=== PATIENT | female | born 1980 | race Two or more races ===

== ENCOUNTER 2024-06-26 11:45 | Day surgery (SDC) | payer MEDICAID, SELFPAY ==
--- NOTE | 2024-06-25 06:39 | EKG_ITS ---
[facility] Test Date: 2024-06-25 Pat Name: NICK ALEX Department: Room: - Gender: Female Clin Tech: [facility] : 1980 Requested By: Kiran Stark Order Number: [id number] Reading MD: Kiran Stark Measurements Intervals [place] Rate: 64 P: 52 UT: 120 QRS: 50 QRSD: 93 T: 55 QT: 388 QTc: 402 Interpretive Statements SINUS RHYTHM No previous ECG available for comparison /store/S0/[id number]/ecg/[id number]
[2024-06-25 08:33] VITALS: BMI 29.9
[2024-06-25 09:54] LABS: Alanine Aminotransferase 10 U/L (10-49); Albumin, Serum 4.3 gm/dL (3.5-5.0); Albumin/Globulin Ratio 1.4 (1.2-2.2); Alkaline Phosphatase 57 U/L (46-116); Anion Gap 6 (7-16); Aspartate Amino Transferase 13 U/L (0-34); BUN/Creatinine Ratio 18 Ratio (12-20); Bilirubin,Total 0.6 mg/dL (0.3-1.2); Blood Urea Nitrogen 11 mg/dL (9-23); Calcium 9.6 mg/dL (8.3-10.6); Calcium (Corrected) 9.6 mg/dL (8.5-10.1); Carbon Dioxide 29.9 mMol/L (20.0-31.0); Chloride 106 mMol/L (98-107); Creatinine (Component) 0.6 mg/dL (0.6-1.3); Estimated Creatinine Clearance 117.3 mL/min (>60); Globulin 3.1 gm/dL (2.3-3.5); Glucose 100 mg/dL (74-106); Osmolality,Calculated 282 (275-295); Potassium 4.5 mMol/L (3.4-5.1); Sodium 142 mMol/L (136-145); Total Protein 7.4 gm/dL (5.7-8.2); eGFR > 60 See Note
[2024-06-26] VITALS (7 sets, daily range): BP systolic 125–151; BP diastolic 69–78; PULSE 67–119; RESP 14–20; TEMP 36.2–36.6; O2SAT 95–100; BMI 29.6
--- NOTE | 2024-06-26 15:28 | ESOP_ITS ---
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 Almost the entire tympanic membrane was covered with a thick adhesion. The malleus was severely barely retracted. The incus had been rotated and placed on top of the stapes but this had migrated superficially. There was cartilage underneath the tympanic membrane from prior reconstruction. The chorda tympani nerve was identified and preserved. The stapes was identified and preserved as well. Procedure Description Indications: This is a 43-year-old female with a moderate to severe mixed hearing loss. She had ear surgery several years ago with no significant improvement. She wished to have a revision performed and repair of the perfor ation. Risk of bleeding infection hearing loss dizziness decreased sense of taste and potential need for further surgery were discussed as well. Anticipated outcomes was discussed also. Patient was marked in the preoperative setting then transferred to the operative suite where she was anesthetized and intubated and sterilely prepped and draped. A timeout was performed. The external canal was injected with 1% lidocaine with 1 100,000 dilution epinephrine the canal was then irrigated with warm saline solution and suction. At this point it was noted there was very thick adhesion overlying the tympanic membrane. This was transected with the sickle knife and the round knife. A portion of it was removed and pressed and dried for later reconstructive purposes. The adhesion was removed from overlying the anterior and superior portions of the tympanic membrane as well. This was done with the assistance of the CO2 laser. The posterior tympanomeatal flap was created and elevated. The chorda tympani nerve was eventually identified. There were adhesions there and these were partially removed with the CO2 laser. The incus was identified as mentioned above. So was the cartilage. Neither were in contact with the stapes superstructure. An 11 blade was used to make a tragal incision and tragal cartilage was harvested. The middle ear was partially filled with dry [place]. The cartilage was then brought into the field and manipulated into the position under the inferior half of the tympanic membrane. The incus and cartilage from prior grafting of been freed from the overlying tissue and repositioned in a better position. The posterior tympanomeatal flap was then folded back over in his normal position. There was a slight gap in the cartilage anteriorly and inferiorly and this was covered with the scar tissue that he been harvested previously. Surg[place]am dipped in saline was then placed on top of the graft and the tympanomeatal flap. Double antibiotic ointment was then placed on top of that. The tragal incision was closed with Dermabond. A sterile cottonball was placed in the external meatus after being coated with antibiotic ointment. Patient was awakened and taken the recovery room in stable condition Anesthesia GETA Pathology / specimen None Estimated Blood Loss 1 Surgeon Kiran Gay DO Surgical Staff Operation Date: 06/26/24 14:00 Case Staff Anesthesiologist: Pineda Muhammad
--- NOTE | 2024-06-26 15:35 | SUR.PHASEI ---
1535: Pt. wakes to name then drifts back to sleep, vitals stable, breathing unlabored, no signs of distress, dressing to left ear has scant amount of blood, report received from Macho LIRA and MD Muhammad.
--- NOTE | 2024-06-26 16:30 | SUR.PHASEII ---
1630: Pt. AAOx4, vitals stable, breathing unlabored, no complaint of pain or nausea, cottonball in place to left ear with same amount of drainage as arrival to PACU, pt. tolerated sips of water well, pt. ambulated to wheelchair with steady gait and no assist, no complications. Gave discharge instructions to the pt. and her ride using operations lieutenant, both verbalized understanding and had no further questions. Pt. left with all personal belongings.
== END 2024-06-26 16:30 | disposition home or self-care (01) ==
LOC: S2EX 16:50
PROVIDERS: Anesthesiology; PCP Family Medicine; Referring Provider Otolaryngology; Visit Provider Otolaryngology
PROC: (CPT 69632; principal; 2024-06-26 13:45)
DX: H72.2X2 Other marginal perforations of tympanic membrane, left ear (principal); H90.72 Mixed conductive and sensorineural hearing loss, unilateral, left ear, with unrestricted hearing on the contralateral side; E78.00 Pure hypercholesterolemia, unspecified; J45.909 Unspecified asthma, uncomplicated; Z01.810 Encounter for preprocedural cardiovascular examination
CPT/HCPCS: 69632; 36415; 80053; 81025; 93005; A4217; A4649; J0171; J2250; J2704; J3010; J3473; J3490; A9270